=== PATIENT | male | born 1950 | race Caucasian/White ===

== ENCOUNTER 2018-11-18 08:59 | Day surgery (SDC) | payer MEDICARE, OTHER ==
[2018-11-18] MEDS ORDERED: PROPOFOL 40 ML (10:24)
[2018-11-18] MEDS ORDERED: GLYCOPYRROLATE 0.4 MG INJ (10:25)
== END 2018-11-18 12:34 | disposition home or self-care (01) ==
LOC: GIL 08:59
DX: R19.4 Change in bowel habit (principal); D12.8 Benign neoplasm of rectum; D12.0 Benign neoplasm of cecum; K21.9 Gastro-esophageal reflux disease without esophagitis; I10 Essential (primary) hypertension; E11.9 Type 2 diabetes mellitus without complications; J44.9 Chronic obstructive pulmonary disease, unspecified; F17.200 Nicotine dependence, unspecified, uncomplicated; Z79.82 Long term (current) use of aspirin
CPT/HCPCS: 43239; 82962; 88305; 88312